=== PATIENT | male | born 2000 | race Caucasian/White ===

== ENCOUNTER 2019-04-09 12:30 | Emergency (ER) | payer MEDICAID ==
[~2019-04-09] VITALS: Ht 165.1 cm; Wt 82.6 kg
[2019-04-09 12:55] VITALS: Ht 165.1 cm; Wt 82.6 kg
[2019-04-09 14:24] LABS: CALCIUM 9.3 mg/dL (8.5-10.1); CARBON DIOXIDE 25.1 mmol/L (21-32); CHLORIDE SERUM 102 mmol/L (98-107); GFR1 > 60 mL/min; GLUCOSE SERUM 99 mg/dL (74-106); POTASSIUM SERUM 3.2 mmol/L (3.5-5.1); SODIUM SERUM 139 mmol/L (136-145)
[2019-04-09 14:25] LABS: AMPHETAMINE QUAL UR POSITIVE (See below)
[2019-04-09 14:25] LABS: BASOPHIL % 0.2 % (0-2); PLATELET COUNT 287 x10^3mcL (130-400); RED CELL DISTRIBUTION WIDTH 12.9 % (11.5-14.5)
[2019-04-09 14:37] LABS: ALBUMIN 4.8 g/dL (3.4-5.0); ALKALINE PHOSPHATASE 98 U/L (46-116); ALT/SGPT 43 U/L (16-63); AST/SGOT 25 U/L (15-37); BILIRUBIN TOTAL 0.55 mg/dL (0.20-1.00); MAGNESIUM 2.4 mg/dL (1.8-2.4); T4(THYROXINE) 11.1 ug/dL (4.7-13.3)
[2019-04-09 14:38] LABS: TOTAL PROTEIN, SERUM 8.8 g/dL (6.4-8.2)
[2019-04-09 17:28] VITALS: BP 131/86
== END 2019-04-09 17:28 | disposition home or self-care (01) ==
LOC: ED 12:30
PROVIDERS: Emergency Medicine
DX: R56.9 Unspecified convulsions (principal); F19.10 Other psychoactive substance abuse, uncomplicated; R51 Headache; M54.9 Dorsalgia, unspecified
CPT/HCPCS: G0480; J1953